=== PATIENT | female | born 1950 | race American Indian/Alaskan Native ===

== ENCOUNTER 2019-01-09 11:58 | Inpatient (IN) | payer MEDICARE ==
--- NOTE | 2019-01-09 12:11 | Emergency Department Report ---
Blank Doc - Documentation Documentation: This is a 68-year-old female that presents with chest pain that is tightness in nature with SOB and radiation to left arm. This initial assessment/diagnostic orders/clinical plan/treatment(s) is/are subject to change based on patient's health status, clinical progression and re- assessment by fellow clinical providers in the ED. Further treatment and workup at subsequent clinical providers discretion. Patient/guardians urged not to elope from the ED as their condition may be serious if not clinically assessed and managed. Initial orders include: 1- Patient sent to MAIN for further evaluation and treatment 2- labs 3- EKG 4- CXR
[2019-01-09 13:10] LABS: Basophils # (Auto) 0.1 K/mm3 (0.0-0.1); Basophils % (Auto) 0.9 % (0.0-1.8); Eosinophils # (Auto) 0.3 K/mm3 (0.0-0.4); Eosinophils % (Auto) 5.6 % (0.0-4.3); Hematocrit 40.6 % (30.3-42.9); Hemoglobin 13.5 gm/dl (10.1-14.3); Lymphocytes # (Auto) 1.4 K/mm3 (1.2-5.4); Lymphocytes % (Auto) 24.1 % (13.4-35.0); Mean Corpuscular HGB Conc 33 % (30-34); Mean Corpuscular Volume 92 fl (79-97); Monocytes # (Auto) 0.5 K/mm3 (0.0-0.8); Monocytes % (Auto) 9.2 % (0.0-7.3); Platelet Count 188 K/mm3 (140-440); Red Blood Count 4.41 M/mm3 (3.65-5.03); Red Cell Distribution Width 14.5 % (13.2-15.2)
[2019-01-09 13:21] LABS: INR 0.96 (0.87-1.13)
--- NOTE | 2019-01-09 13:21 | XRay Report ---
. CHEST 2 VIEWS INDICATION / CLINICAL INFORMATION: Chest Pain. COMPARISON: None available. FINDINGS: SUPPORT DEVICES: None. HEART / MEDIASTINUM: No significant abnormality. LUNGS / PLEURA: No significant pulmonary or pleural abnormality. .No pneumothorax. ADDITIONAL FINDINGS: No significant additional findings. IMPRESSION: 1. No acute findings. Signer Name: Terry Lazar MD Signed: 01/09/2019 1:16 PM Workstation Name: [id number]
[2019-01-09 13:22] LABS: Partial Thromboplastin Time 28.3 Sec. (24.2-36.6)
[2019-01-09 14:14] LABS: BUN/Creatinine Ratio TNR; Blood Urea Nitrogen TNR mg/dL (7-17); Calcium TNR mg/dL (8.4-10.2)
[2019-01-09 14:15] LABS: Hemolysis Index TNR
[2019-01-09 15:07] LABS: Calcium 9.1 mg/dL (8.4-10.2)
--- NOTE | 2019-01-09 17:13 | Emergency Department Report ---
ED Chest Pain HPI - General Chief Complaint: Chest Pain Stated Complaint: CHEST PAIN Time Seen by Provider: 01/09/19 12:10 Source: patient Mode of arrival: Ambulatory Limitations: No Limitations - History of Present Illness Initial Comments: 68-year-old female complains of pressure under her left breast intermittently today. The pain is not pleuritic and nonexertional. He states that she has previously had a stress test approximately 3 years ago which was negative. She has a history of hypertension but is not aware of cholesterol problem. Additio nal history includes hypothyroidism, arthritis and GERD. She is tearful but somewhat reticent to admit excessive stress. She states she's been living in this area for about a year and a half and is from [place]. She denies family history of venous thromboembolism or coronary artery disease. MD Complaint: chest pain -: Gradual, hour(s) Onset: during rest Pain Location: left chest Pain Radiation: none Quality: pressure Consistency: intermittent Improves With: nothing Worsens With: nothing re: nausea, vomting (times one), diaphoresis (states had some sweating). denies: dyspnea, sense of impending doom Other Symptoms: denies: cough, fever, syncope Treatments Prior to Arrival: none Aspirin use within the Past 7 Days: (0) No - Related Data On Oral Contraceptives: No Home Medications Medication Instructions Recorded Confirmed Last Taken Carvedilol [Coreg] 6.25 mg PO BID 01/09/19 01/09/19 01/09/19 Cholecalciferol (Vitamin D3) 50,000 unit PO QDAY 01/09/19 01/09/19 01/09/19 [Vitamin D3 50,000UNIT CAP] Duloxetine HCl [Cymbalta] 60 mg PO QDAY 01/09/19 01/09/19 01/09/19 Levothyroxine [Synthroid] 125 mcg PO QAM 01/09/19 01/09/19 01/09/19 Lisinopril/Hydrochlorothiazide 1 each PO QDAY 01/09/19 01/09/19 01/09/19 [Zestoretic 10-12.5 mg Tablet] Meloxicam [Mobic] 7.5 mg PO QDAY 01/09/19 01/09/19 01/09/19 Pantoprazole [Protonix] 40 mg PO QDAY 01/09/19 01/09/1919 cloNIDine [Catapres] 0.1 mg PO QDAY 01/09/19 01/09/19 01/09/19 raNITIdine HCl [Zantac] 150 mg PO QDAY 01/09/19 01/09/19 12/26/18 Allergies Allergy/AdvReac Type Severity Reaction Status Date / Time codeine Allergy Unknown Verified 01/09/19 12:01 Heart Score - HEART Score History: Moderately suspicious EKG: Normal Age: > 65 Risk factors: 1-2 risk factors Troponin: < normal limit HEART Score: 4 - Critical Actions Critical Actions: 4-6 pts:12-16.6% risk of adverse cardiac event. Should be admitted ED Review of Systems ROS: Stated complaint: CHEST PAIN Other details as noted in HPI Constitutional: denies: chills, fever Eyes: denies: eye pain, eye discharge, vision change ENT: denies: ear pain, throat pain Respiratory: denies: cough, shortness of breath, wheezing Cardiovascular: denies: chest pain, palpitations Endocrine: no symptoms reported Gastrointestinal: denies: abdominal pain, nausea, diarrhea Genitourinary: denies: urgency, dysuria, discharge Musculoskeletal: denies: back pain, joint swelling, arthralgia Skin: denies: rash, lesions Neurological: headache, numbness (right leg intermittently for months). denies: weakness, paresthesias Psychiatric: denies: anxiety, depression Hematological/Lymphatic: denies: easy bleeding, easy bruising ED Past Medical Hx - Past Medical History Previous Medical History?: Yes Hx Hypertension: Yes Hx GERD: Yes Hx Arthritis: Yes Additional medical history: hypothyroid - Social History Smoking Status: Former Smoker Substance Use Type: None - Medications Home Medications: Home Medications Medication Instructions Recorded Confirmed Last Taken Type Carvedilol [Coreg] 6.25 mg PO BID 01/09/19 01/09/19 01/09/19 History Cholecalciferol (Vitamin D3) 50,000 unit PO QDAY 01/09/19 01/09/19 01/09/19 History [Vitamin D3 50,000UNIT CAP] Duloxetine HCl [Cymbalta] 60 mg PO QDAY 01/09/19 01/09/19 01/09/19 History Levothyroxine [Synthroid] 125 mcg PO QAM 01/09/19 01/09/1919 History Lisinopril/Hydrochlorothiazide 1 each PO QDAY 01/09/19 01/09/19 01/09/19 History [Zestoretic 10-12.5 mg Tablet] Meloxicam [Mobic] 7.5 mg PO QDAY 01/09/19 01/09/19 01/09/19 History Pantoprazole [Protonix] 40 mg PO QDAY 01/09/19 01/09/19 01/09/19 History cloNIDine [Catapres] 0.1 mg PO QDAY 01/09/19 01/09/19 01/09/19 History raNITIdine HCl [Zantac] 150 mg PO QDAY 01/09/19 01/09/19 12/26/18 History ED Physical Exam - General Limitations: No Limitations General appearance: alert, in no apparent distress - Head Head exam: Present: atraumatic, normocephalic - Eye Eye exam: Present: normal appearance. Absent: scleral icterus - ENT ENT exam: Present: mucous membranes moist - Neck Neck exam: Present: normal inspection. Absent: tenderness, meningismus - Respiratory Respiratory exam: Present: normal lung sounds bilaterally. Absent: respiratory distress - Cardiovascular Cardiovascular Exam: Present: regular rate, normal rhythm. Absent: systolic murmur, diastolic murmur, rubs, gallop - GI/Abdominal GI/Abdominal exam: Present: soft, normal bowel sounds. Absent: distended, te nderness, guarding, rebound, rigid - Extremities Exam Extremities exam: Present: normal inspection, normal capillary refill. Absent: tenderness, pedal edema, joint swelling, calf tenderness - Back Exam Back exam: Present: normal inspection - Neurological Exam Neurological exam: Present: alert, oriented X3, CN II-XII intact. Absent: motor sensory deficit - Psychiatric Psychiatric exam: Present: normal mood. Absent: normal affect (a bit labile) - Skin Skin exam: Present: warm, dry, intact, normal color. Absent: rash ED Course Vital Signs 01/09/19 12:11 Temperature 98.4 F Pulse Rate 74 Respiratory 18 Rate Blood Pressure 130/81 O2 Sat by Pulse 100 Oximetry - Reevaluation(s) Reevaluation #1: Patient is given analgesia. She sent for CT of her head due to her complaint of headache as well as intermittent right leg numbness. Her NIH stroke score was 0. Her neurological exam was normal; I found no sensory deficits. 01/09/19 18:32 ED Medical Decision Making - Lab Data Result diagrams: 01/09/19 12:37 01/09/19 14:33 Laboratory Results - last 24 hr 01/09/19 01/09/19 01/09/19 12:37 12:37 12:37 WBC 5.9 RBC 4.41 Hgb 13.5 Hct 40.6 MCV 92 MCH 31 MCHC 33 RDW 14.5 Plt Count 188 Lymph % (Auto) 24.1 [place] % (Auto) 9.2 H Eos % (Auto) 5.6 H Baso % (Auto) 0.9 Lymph # 1.4 [place] # 0.5 Eos # 0.3 Baso # 0.1 Seg Neutrophils % 60.2 Seg Neutrophils # 3.6 PT 12.5 INR 0.96 APTT 28.3 Sodium TNR Potassium TNR Chloride TNR Carbon Dioxide TNR Anion Gap TNR BUN TNR Creatinine TNR Estimated GFR TNR BUN/Creatinine Ratio TNR Glucose TNR Calcium TNR Troponin T < 0.010 01/09/19 01/09/19 14:33 14:33 WBC RBC Hgb Hct MCV MCH MCHC RDW Plt Count Lymph % (Auto) [place] % (Auto) Eos % (Auto) Baso % (Auto) Lymph # [place] # Eos # Baso # Seg Neutrophils % Seg Neutrophils # PT INR APTT Sodium 142 Potassium 4.5 Chloride 103.0 Carbon Dioxide 29 Anion Gap 15 BUN 25 H Creatinine 1.0 Estimated GFR 55 BUN/Creatinine Ratio 25 Glucose 88 Calcium 9.1 Troponin T < 0.010 - EKG Data -: EKG Interpreted by Me EKG shows normal: sinus rhythm, axis, intervals, QRS complexes (low-voltage), ST-T waves - EKG Data Interpretation: no acute changes - Radiology Data Radiology results: pending, report reviewed (no acute process), image reviewed (CT head I don't see any acute process or remarkable intracranial abdomen mildly interpretation pending per radiologist) Critical care attestation.: If time is entered above; I have spent that time in minutes in the direct care of this critically ill patient, excluding procedure time. ED Disposition Clinical Impression: Chest pain Qualifiers: Chest pain type: unspecified Qualified Code(s): R07.9 - Chest pain, unspecified Disposition: DC-09 OP ADMIT IP TO THIS HOSP Is pt being admited?: Yes Does the pt Need Aspirin: Yes Condition: Stable Instructions: Chest Pain (ED) Referrals: PRIMARY CARE, [Referring] - 3-5 Days Time of Disposition: 18:39
[2019-01-09] MEDS ORDERED: ZOFRAN IV ONE (17:55)
[2019-01-09] MEDS ORDERED: ASPIRIN PO ONE (17:55)
[2019-01-09] MEDS ORDERED: MORPHINE IV ONE (17:55)
--- NOTE | 2019-01-09 18:46 | Cat Scan Report ---
CT BRAIN: 01/09/2019 INDICATION / CLINICAL INFORMATION: headache. COMPARISON: None available. FINDINGS: BRAIN/INTRACRANIAL STRUCTURES: Unenhanced CT images of the brain demonstrate no evidence of acute int racranial abnormality. Ventricles and sulci are slightly prominent in size, consistent with normal age-related atrophic edwards ge. There is no evidence of hemorrhage or mass. There are no abnormal extra-axial fluid collections. EXTRACRANIAL STRUCTURES: Unremarkable. IMPRESSION: No acute abnormality. All CT scans at this location are performed using dose reduction to ALARA by means of automated expos ure control. Signer Name: Tyler Piedra MD Signed: 01/09/2019 6:42 PM Workstation Name: [id number]
[2019-01-09] MEDS ORDERED: NITROSTAT SL PRN (19:48)
[2019-01-09] MEDS ORDERED: SODIUM CHLORIDE FLUSH SYRINGE 10 ML IV PRN (19:48)
[2019-01-09] MEDS ORDERED: PROVENTIL IH PRN (19:53)
[2019-01-09] MEDS ORDERED: ZOFRAN IV PRN (19:53)
[2019-01-09] MEDS ORDERED: NACL 0.9% 1000 ML 1,000 ML IV SCH (20:00)
[2019-01-09] MEDS ORDERED: NACL 0.9% 1000 ML 2,000 ML ONE (20:08)
--- NOTE | 2019-01-09 20:19 | History and Physical Report ---
History of Present Illness Date of examination: 01/09/19 Date of admission: 01/09/2019 Chief complaint: Chest Pain History of present illness: 68-year-old -[place] female who is a former smoker with history of degenerative disc disease, hypertension, hypothyroidism, GERD, arthritis who presents to [facility] ED with complaints of chest pain. Pt is a nursery school attendant by profession. Pt states that she was in the middle of her morning lesson, when she began experiencing nausea, diaphoresis and intermittent substernal left-sided chest pain. She stepped out side the classroom to get some fresh air. She thought her pain was associated with gas and took GasX with no relief; instead her pain returned. This time with radiation to left arm. She describes her pain as tightness/pressure and rates it 9/10. Pt states that she's had CP approx 3 years ago and vaguely recalls having a stress test, which was negative, and was started on Coreg. Additionally pt c/o og generalized headache, which has since resolved. Past History Past Medical History: arthritis, GERD, hypertension, hypothyroidism, other (degenerative of this disease) Past Surgical History: thyroidectomy, Other (Back surgery) Social history: lives with family, other (Fomrer Smoker ) Family history: no significant family history Medications and Allergies Allergies Allergy/AdvReac Type Severity Reaction Status Date / Time codeine Allergy Unknown Verified 01/09/19 12:01 Home Medications Medication Instructions Recorded Confirmed Last Taken Type Carvedilol [Coreg] 6.25 mg PO BID 01/09/19 01/09/19 01/09/19 History Cholecalciferol (Vitamin D3) 50,000 unit PO QDAY 01/09/19 01/09/19 01/09/19 His tory [Vitamin D3 50,000UNIT CAP] Duloxetine HCl [Cymbalta] 60 mg PO QDAY 01/09/19 01/09/19 01/09/19 History Levothyroxine [Synthroid] 125 mcg PO QAM 01/09/19 01/09/19 01/09/19 History Lisinopril/Hydrochlorothiazide 1 each PO QDAY 01/09/19 01/09/19 01/09/19 History [Zestoretic 10-12.5 mg Tablet] Meloxicam [Mobic] 7.5 mg PO QDAY 01/09/19 01/09/1919 History Pantoprazole [Protonix] 40 mg PO QDAY 01/09/19 01/09/19 01/09/19 History cloNIDine [Catapres] 0.1 mg PO QDAY 01/09/19 01/09/19 01/09/19 History raNITIdine HCl [Zantac] 150 mg PO QDAY 01/09/19 01/09/19 12/26/18 History Active Meds: Active Medications Albuterol (Proventil) 2.5 mg IH Q3HRT PRN PRN Reason: Shortness Of Breath Aspirin (Baby Aspirin) 81 mg PO QDAY [facility] Atorvastatin Calcium (Lipitor) 40 mg PO QHS [facility] Clonidine HCl (Catapres) 0.1 mg PO QDAY [facility] Duloxetine HCl (Cymbalta) 60 mg PO QDAY [facility] Enoxaparin Sodium (Lovenox) 40 mg SUB-Q QDAY [facility] Hydrochlorothiazide (Hctz) 12.5 mg PO QDAY [facility] Sodium Chloride (Nacl 0.9% 1000 Ml) 1,000 mls @ 100 mls/hr IV DIRECT [facility] Last Admin: 01/09/19 20:11 Dose: 100 mls/hr Documented by: Levothyroxine Sodium (Synthroid) 125 mcg PO QAM [facility] Lisinopril (Zestril) 10 mg PO QDAY [facility] Meloxicam (Mobic) 7.5 mg PO QDAY [facility] Miscellaneous Medication (Cholecalciferol (Vitamin D3) [Vitamin D3 50,000unit Cap]) 50,000 unit PO QDAY [facility] Morphine Sulfate (Morphine) 2 mg IV Q4H PRN PRN Reason: Pain, Moderate (4-6) Nitroglycerin (Nitrostat) 0.4 mg SL Q5M PRN PRN Reason: Chest Pain Ondansetron HCl (Zofran) 4 mg IV Q6H PRN PRN Reason: Nausea And Vomiting Oxycodone/Acetaminophen (Percocet 5/325) 1 tab PO Q6H PRN PRN Reason: Pain, Moderate (4-6) Pantoprazole Sodium (Protonix) 40 mg PO QDAY [facility] Sodium Chloride (Sodium Chloride Flush Syringe 10 Ml) 10 ml IV PRN PRN PRN Reason: LINE FLUSH Sodium Chloride (Sodium Chloride Flush Syringe 10 Ml) 10 ml IV BID [facility] Review of Systems All systems: negative (reviewed and no remarkable complaints except as noted below) Cardiovascular: chest pain, lightheadedness, other (diaphoresis) Gastrointestinal: nausea Neurological: headaches (Gunjan complained of headache but has since resolved) Exam - Physical Exam Narrative exam: Physical exam General appearance: Present: No acute distress, pleasant, alert and oriented 3, older adult -[place] female - EENT Eyes: Present: PERRL, EOM intact ENT: hearing intact, normal dentition - Neck Neck: Present: supple, normal ROM - Respiratory Respiratory effort: Non-labored Respiratory: CTA bilaterally - Cardiovascular Heart rate: 65 (bpm) Rhythm: Sinus rhythm Heart Sounds: Present: S1 & S2. Absent: rub, click - Extremities Extremities: no ischemia, pulses intact, - Peripheral Assessment Peripheral Pulses: within normal limits - Abdominal General gastrointestinal: These, soft, non-tender, normal bowel sounds - Integumentary Integumentary: Present: warm, dry - Musculoskeletal Musculoskeletal: Able to move all extremities -Neurological Neurological: CN II-XII grossly intact - Psychiatric Psychiatric: cooperative - Constitutional Vitals: Temp Pulse Resp BP Pulse Ox 98 F 64 12 151/88 99 01/09/19 19:10 01/09/19 19:10 01/09/19 19:10 01/09/19 19:10 01/09/19 19:10 Results - Labs CBC & Chem 7: 01/09/19 12:37 01/09/19 14:33 Labs: Laboratory Last Values WBC 5.9 K/mm3 (4.5-11.0) 01/09/19 12:37 RBC 4.41 M/mm3 (3.65-5.03) 01/09/19 12:37 Hgb 13.5 gm/dl (10.1-14.3) 01/09/19 12:37 Hct 40.6 % (30.3-42.9) 01/09/19 12:37 MCV 92 fl (79-97) 01/09/19 12:37 MCH 31 pg (28-32) 01/09/19 12:37 MCHC 33 % (30-34) 01/09/19 12:37 RDW 14.5 % (13.2-15.2) 01/09/19 12:37 Plt Count 188 K/mm3 (140-440) 01/09/19 12:37 Lymph % (Auto) 24.1 % (13.4-35.0) 01/09/19 12:37 [place] % (Auto) 9.2 % (0.0-7.3) H 01/09/19 12:37 Eos % (Auto) 5.6 % (0.0-4.3) H 01/09/19 12:37 Baso % (Auto) 0.9 % (0.0-1.8) 01/09/19 12:37 Lymph # 1.4 K/mm3 (1.2-5.4) 01/09/19 12:37 [place] # 0.5 K/mm3 (0.0-0.8) 01/09/19 12:37 Eos # 0.3 K/mm3 (0.0-0.4) 01/09/19 12:37 Baso # 0.1 K/mm3 (0.0-0.1) 01/09/19 12:37 Seg Neutrophils % 60.2 % (40.0-70.0) 01/09/19 12:37 Seg Neutrophils # 3.6 K/mm3 (1.8-7.7) 01/09/19 12:37 PT 12.5 Sec. (12.2-14.9) 01/09/19 12:37 INR 0.96 (0.87-1.13) 01/09/19 12:37 APTT 28.3 Sec. (24.2-36.6) 01/09/19 12:37 Sodium 142 mmol/L (137-145) 01/09/19 14:33 Potassium 4.5 mmol/L (3.6-5.0) 01/09/19 14:33 Chloride 103.0 mmol/L (98-107) 01/09/19 14:33 Carbon Dioxide 29 mmol/L (22-30) 01/09/19 14:33 15 mmol/L 01/09/19 14:33 BUN 25 mg/dL (7-17) H 01/09/19 14:33 1.0 mg/dL (0.7-1.2) 01/09/19 14:33 Estimated GFR 55 ml/min 01/09/19 14:33 25 % 01/09/19 14:33 Glucose 88 mg/dL (65-100) 01/09/19 14:33 Calcium 9.1 mg/dL (8.4-10.2) 01/09/19 14:33 < 0.010 ng/mL (0.00-0.029) 01/09/19 14:33 - Imaging and Cardiology EKG: image reviewed (Sinus rhythm, 65 bpm) Chest x-ray: report reviewed (LUNGS / PLEURA: No significant pulmonary or pleural abnormality. .No pneumothorax. ), image reviewed Imaging and Cardiology: CT Head: FINDINGS: BRAIN/INTRACRANIAL STRUCTURES: Unenhanced CT images of the brain demonstrate no evidence of acute intracranial abnormality. Ventricles and sulci are slightly prominent in size, consistent with normal age-related atrophic change. There is no evidence of hemorrhage or mass. There are no abnormal extra- axial fluid collections. EXTRACRANIAL STRUCTURES: Unremarkable. IMPRESSION: No acute abnormality. Assessment and Plan Assessment and plan: 68-year-old -[place] female who is a former smoker with history of degenerative disc disease, hypertension, hypothyroidism, GERD, arthritis who presents to [facility] ED with complaints of chest pain accompanied by diaphoresis and nausea. Acute Chest Pain R/O ACS -Initiate chest pain protocol -Continuous telemetry monitoring -Continue supportive care -Pain mgmt -Echo and Lexiscan pending -Troponin neg x2, repeat troponin -Start ASA and Statin -Lipid panel pending HTN -Monitor BP -Resume home antihypertensive meds to optimize BP -Hold BB for now -IV hydralazine when necessary Hypothroidism -Continue Synthroid -Check TSH GERD -Continue PPI Arthritis -Supportive care DVT PPX -On Lovenox Advance Directives: No VTE prophylaxis?: Chemical Plan of care discussed with patient/family: Yes
[2019-01-09] MEDS ORDERED: APRESOLINE IV PRN (20:26)
[2019-01-09] MEDS: PERCOCET 5/325 PO PRN (22:23)
[2019-01-09] MEDS: SODIUM CHLORIDE FLUSH SYRINGE 10 ML IV SCH (22:24)
[2019-01-09] MEDS: AMBIEN PO PRN (23:25)
[2019-01-10] MEDS: MORPHINE IV PRN ×2 (00:27→20:36)
[2019-01-10 05:00] LABS: Basophils % (Auto) 0.4 % (0.0-1.8); Eosinophils # (Auto) 0.3 K/mm3 (0.0-0.4); Eosinophils % (Auto) 6.5 % (0.0-4.3); Hemoglobin 13.3 gm/dl (10.1-14.3); Lymphocytes # (Auto) 1.5 K/mm3 (1.2-5.4); Lymphocytes % (Auto) 29.3 % (13.4-35.0); Mean Corpuscular HGB Conc 33 % (30-34); Mean Corpuscular Volume 93 fl (79-97); Monocytes # (Auto) 0.6 K/mm3 (0.0-0.8); Monocytes % (Auto) 11.1 % (0.0-7.3); Platelet Count 177 K/mm3 (140-440); Red Cell Distribution Width 14.7 % (13.2-15.2)
[2019-01-10 05:47] LABS: BUN/Creatinine Ratio 26; Blood Urea Nitrogen 23 mg/dL (7-17); Calcium 8.7 mg/dL (8.4-10.2); Chol/HDL Ratio 2.84 %; HDL Cholesterol 58 mg/dL (40-59); Hemolysis Index 18; LDL Cholesterol,Direct 91 mg/dL (50-130)
[2019-01-10] MEDS ORDERED: LEXISCAN IV ONE ×2 (09:56→09:57)
[2019-01-10] MEDS ORDERED: NON-FORMULARY (Duloxetine Hcl [Cymbalta] 60 MG) PO SCH (10:00)
[2019-01-10] MEDS ORDERED: NON-FORMULARY (Lisinopril/Hydrochlorothiazide [Zestoretic 10-12.5 Mg Tablet] 1 EACH) PO SCH (10:00)
[2019-01-10] MEDS ORDERED: CHOLECALCIFEROL 50000 UNIT PO SCH (10:00)
[2019-01-10] MEDS ORDERED: CATAPRES PO SCH (10:00)
[2019-01-10] MEDS ORDERED: ZESTRIL PO SCH (10:00)
[2019-01-10] MEDS: SODIUM CHLORIDE FLUSH SYRINGE 10 ML IV SCH ×2 (10:38→22:48)
--- NOTE | 2019-01-10 13:18 | Event Note ---
Date: 01/10/19 lexiscan stress: lvef 68%. a small area of mild basal septal ischemia cannot be excluded. this defect was seen in only one imaging projection and may be artifactual in origin. a significant degree of ischemia was not seen. correlate clinically.
[2019-01-10] MEDS: BABY ASPIRIN PO SCH (14:00)
[2019-01-10] MEDS: CYMBALTA PO SCH (14:00)
[2019-01-10] MEDS: PERCOCET 5/325 PO PRN (14:01)
[2019-01-10] MEDS: SYNTHROID PO SCH (14:02)
[2019-01-10] MEDS: PROTONIX PO SCH (14:02)
[2019-01-10] MEDS: LOVENOX SUB-Q SCH (14:02)
[2019-01-10] MEDS: MOBIC PO SCH (14:03)
--- NOTE | 2019-01-10 14:56 | Consultation ---
History of Present Illness Consult date: 01/10/19 Consult reason: chest pain History of present illness: 68 yo female adm to [facility] c/o chest pain concerning for myocardial ischemia. ecg and cardiac enz unremarkable as was an echocardiogram. lexiscan stress mpi demonstrated normal lv systolic function with an area of possible basal inferoseptal ischemia. cardiology consultation was requested. the pt described the cp as pressure in qual with radiation down the left arm and accompanied by diaphoresis. 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) Past Surgical History: thyroidectomy, Other (Back surgery) Social history: lives with family, other (Fomrer Smoker ) Family history: no significant family history Medications and Allergies Allergies Allergy/AdvReac Type Severity Reaction Status Date / Time codeine Allergy Unknown Verified 01/09/19 12:01 Home Medications Medication Instructions Recorded Confirmed Last Taken Type Carvedilol [Coreg] 6.25 mg PO BID 01/09/19 01/09/19 01/09/19 History Cholecalciferol (Vitamin D3) 50,000 unit PO QWEEK 01/09/19 01/09/19 01/09/19 History [Vitamin D3 50,000UNIT CAP] Duloxetine HCl [Cymbalta] 60 mg PO QDAY 01/09/19 01/09/19 01/09/19 History HYDROcodone/APAP 7.5-325 [[place] 1 tab PO BID 01/09/19 01/09/19 01/08/19 History 7.5-325 mg TAB] Levothyroxine [Synthroid] 125 mcg PO QAM 01/09/19 01/09/19 01/09/19 History Lisinopril/Hydrochlorothiazide 1 each PO QDAY 01/09/19 01/09/19 01/09/19 History [Zestoretic 10-12.5 mg Tablet] Meloxicam [Mobic] 7.5 mg PO QDAY 01/09/19 01/09/19 01/09/19 History Pantoprazole [Protonix] 40 mg PO QDAY 01/09/19 01/09/19 01/09/19 History Zolpidem [Ambien] 10 mg PO QHS 01/09/19 01/09/19 01/08/19 History cloNIDine [Catapres] 0.1 mg PO QDAY 01/09/19 01/09/19 01/09/19 History raNITIdine HCl [Zantac] 150 mg PO QDAY 01/09/19 01/09/19 12/26/18 History Active Meds: Active Medications Albuterol (Proventil) 2.5 mg IH Q3HRT PRN PRN Reason: Shortness Of Breath Aspirin (Baby Aspirin) 81 mg PO QDAY [facility] Last Admin: 01/10/19 14:00 Dose: 81 mg Documented by: Atorvastatin Calcium (Lipitor) 40 mg PO QHS [facility] Last Admin: 01/09/19 22:23 Dose: 40 mg Documented by: Duloxetine HCl (Cymbalta) 60 mg PO QDAY [facility] Last Admin: 01/10/19 14:00 Dose: 60 mg Documented by: Enoxaparin Sodium (Lovenox) 40 mg SUB-Q QDAY [facility] Last Admin: 01/10/19 14:02 Dose: 40 mg Documented by: Hydralazine HCl (Apresoline) 10 mg IV Q4HR PRN PRN Reason: Blood Pressure Hydrochlorothiazide (Hctz) 12.5 mg PO QDAY [facility] Sodium Chloride (Nacl 0.9% 1000 Ml) 1,000 mls @ 100 mls/hr IV DIRECT [facility] Last Admin: 01/09/19 20:11 Dose: 100 mls/hr Documented by: Levothyroxine Sodium (Synthroid) 125 mcg PO QAM [facility] Last Admin: 01/10/19 14:02 Dose: 125 mcg Documented by: Meloxicam (Mobic) 7.5 mg PO QDAY [facility] Last Admin: 01/10/19 14:03 Dose: 7.5 mg Documented by: Morphine Sulfate (Morphine) 2 mg IV Q4H PRN PRN Reason: Pain, Moderate (4-6) Last Admin: 01/10/19 00:27 Dose: 2 mg Documented by: Nitroglycerin (Nitrostat) 0.4 mg SL Q5M PRN PRN Reason: Chest Pain Nitroglycerin (Nitro-Bid 2%) 0.5 inch TP Q6H [facility]; Protocol Ondansetron HCl (Zofran) 4 mg IV Q6H PRN PRN Reason: Nausea And Vomiting Oxycodone/Acetaminophen (Percocet 5/325) 1 tab PO Q6H PRN PRN Reason: Pain, Moderate (4-6) Last Admin: 01/10/19 14:01 Dose: 1 tab Documented by: Pantoprazole Sodium (Protonix) 40 mg PO QDAY [facility] Last Admin: 01/10/19 14:02 Dose: 40 mg Documented by: Sodium Chloride (Sodium Chloride Flush Syringe 10 Ml) 10 ml IV PRN PRN PRN Reason: LINE FLUSH Sodium Chloride (Sodium Chloride Flush Syringe 10 Ml) 10 ml IV BID [facility] Last Admin: 01/09/19 22:24 Dose: 10 ml Documented by: Zolpidem Tartrate (Ambien) 5 mg PO QHS PRN PRN Reason: Sleep Last Admin: 01/09/19 23:25 Dose: 5 mg Documented by: Review of Systems Constitutional: no fever, no chills Eyes: bilateral: blurred vision (w/o) Ears, nose, mouth and throat: no epistaxis Cardiovascular: no orthopnea Respiratory: no hemoptysis Gastrointestinal: no abdominal pain Genitourinary Female: no flank pain Musculoskeletal: no frequent falls Integumentary: no rash Neurological: no seizures, no syncope Psychiatric: no anxiety Endocrine: no cold intolerance, no heat intolerance Hematologic/Lymphatic: no easy bruising Allergic/Immunologic: no urticaria Physical Examination Vital Signs Temp Pulse Resp BP Pulse Ox 98.4 F 74 18 130/81 100 01/09/19 12:11 01/09/19 12:11 01/09/19 12:11 01/09/19 12:11 01/09/19 12:11 General appearance: no acute distress HEENT: Positive: PERRL Neck: Positive: neck supple. Negative: JVD/HJR, Bruit Cardiac: Positive: Reg Rate and Rhythm. Negative: Audible Murmur Lungs: Positive: clear to auscultation Neuro: Positive: Grossly Intact Abdomen: Positive: Soft. Negative: Tender Skin: Positive: Clear Extremities: Present: normal. Absent: edema Results 01/10/19 04:02 01/10/19 04:02 Lipids 01/10/19 Range/Units 04:02 Triglycerides 104 (2-149) mg/dL Cholesterol 165 (50-199) mg/dL HDL Cholesterol 58 (40-59) mg/dL Cholesterol/HDL Ratio 2.84 % CBC 01/10/19 Range/Units 04:02 WBC 5.2 (4.5-11.0) K/mm3 RBC 4.30 (3.65-5.03) M/mm3 Hgb 13.3 (10.1-14.3) gm/dl Hct 40.0 (30.3-42.9) % Plt Count 177 (140-440) K/mm3 Lymph # 1.5 (1.2-5.4) K/mm3 [place] # 0.6 (0.0-0.8) K/mm3 Eos # 0.3 (0.0-0.4) K/mm3 Baso # 0.0 (0.0-0.1) K/mm3 Comprehensive Metabolic Panel 01/09/19 01/10/19 Range/Units 14:33 04:02 Sodium 142 145 (137-145) mmol/L Potassium 4.5 4.1 (3.6-5.0) mmol/L Chloride 103.0 106.6 (98-107) mmol/L Carbon Dioxide 29 30 (22-30) mmol/L BUN 25 H 23 H (7-17) mg/dL Creatinine 1.0 0.9 (0.7-1.2) mg/dL Glucose 88 100 (65-100) mg/dL Calcium 9.1 8.7 (8.4-10.2) mg/dL Assessment and Plan chest pain concerning for myocardial ischemia tanya stress mpi not diagnostic but cannot exclude an area of basal septal ischemia suggestive of potential occlusive disease in the distribution of the right coronary artery. I had a lengthy discussion with patient re the findings. she would like to proceed with invasvie cor angio for definitive diagnosis. please keep her in the hosp and we will plan to perform the procedure on sunday.
[2019-01-10] MEDS: HCTZ PO SCH (15:19)
[2019-01-10] MEDS: NITRO-BID 2% TP SCH ×2 (15:19→20:35)
[2019-01-10] MEDS ORDERED: NACL 0.9% 500 ML 500 ML IV SCH (16:00)
--- NOTE | 2019-01-10 18:39 | Progress Note ---
Assessment and Plan Assessment and plan: 68-year-old -[place] female who is a former smoker with history of degenerative disc disease, hypertension, hypothyroidism, GERD, arthritis who presents to [facility] ED with complaints of chest pain accompanied by diaphoresis and nausea. Acute Chest Pain To R/O ACS -Initiate chest pain protocol -Continuous telemetry monitoring -Continue supportive care -Pain mgmt -Slight abnormal stress test Consult cardiology Start Nitropaste For stress test on Sunday Will change from Obs to Full admit HTN -Monitor BP -Resume home antihypertensive meds to optimize BP -Hold BB for now -IV hydralazine when necessary Hypothroidism -Continue Synthroid GERD -Continue PPI Arthritis -Supportive care DVT PPX -On Lovenox History Interval history: Presented with chest pain Less chest pain but still present Hospitalist Physical - Physical exam Narrative exam: Gen: Not in acute distress, lying in bed,morbidly obese HEENT: Normocephalic, atraumatic Neck: supple, no JVD Heart: S1 and S2 reg, no murmurs, rubs or gallop Lungs: Clear, no crackles, no rhonchi Abd: soft, non tender, non distended, normal BS, Ext: No edema, no clubbing, no cyanosis Neuro: awake,alert,oriented, moves all ext - Constitutional Vitals: Temp Pulse Resp BP Pulse Ox 97.8 F 62 12 115/50 97 01/10/19 07:31 01/10/19 14:00 01/10/19 07:31 01/10/19 14:00 01/10/19 07:31 General appearance: Present: no acute distress Results - Labs CBC & Chem 7: 01/10/19 04:02 01/10/19 04:02 Labs: Laboratory Last Values WBC 5.2 K/mm3 (4.5-11.0) 01/10/19 04:02 RBC 4.30 M/mm3 (3.65-5.03) 01/10/19 04:02 Hgb 13.3 gm/dl (10.1-14.3) 01/10/19 04:02 Hct 40.0 % (30.3-42.9) 01/10/19 04:02 MCV 93 fl (79-97) 01/10/19 04:02 MCH 31 pg (28-32) 01/10/19 04:02 MCHC 33 % (30-34) 01/10/19 04:02 RDW 14.7 % (13.2-15.2) 01/10/19 04:02 Plt Count 177 K/mm3 (140-440) 01/10/19 04:02 Lymph % (Auto) 29.3 % (13.4-35.0) 01/10/19 04:02 [place] % (Auto) 11.1 % (0.0-7.3) H 01/10/19 04:02 Eos % (Auto) 6.5 % (0.0-4.3) H 01/10/19 04:02 Baso % (Auto) 0.4 % (0.0-1.8) 01/10/19 04:02 Lymph # 1.5 K/mm3 (1.2-5.4) 01/10/19 04:02 [place] # 0.6 K/mm3 (0.0-0.8) 01/10/19 04:02 Eos # 0.3 K/mm3 (0.0-0.4) 01/10/19 04:02 Baso # 0.0 K/mm3 (0.0-0.1) 01/10/19 04:02 Seg Neutrophils % 52.7 % (40.0-70.0) 01/10/19 04:02 Seg Neutrophils # 2.8 K/mm3 (1.8-7.7) 01/10/19 04:02 PT 12.5 Sec. (12.2-14.9) 01/09/19 12:37 INR 0.96 (0.87-1.13) 01/09/19 12:37 APTT 28.3 Sec. (24.2-36.6) 01/09/19 12:37 Sodium 145 mmol/L (137-145) 01/10/19 04:02 Potassium 4.1 mmol/L (3.6-5.0) 01/10/19 04:02 Chloride 106.6 mmol/L (98-107) 01/10/19 04:02 Carbon Dioxide 30 mmol/L (22-30) 01/10/19 04:02 13 mmol/L 01/10/19 04:02 BUN 23 mg/dL (7-17) H 01/10/19 04:02 0.9 mg/dL (0.7-1.2) 01/10/19 04:02 Estimated GFR > 60 ml/min 01/10/19 04:02 26 % 01/10/19 04:02 Glucose 100 mg/dL (65-100) 01/10/19 04:02 Calcium 8.7 mg/dL (8.4-10.2) 01/10/19 04:02 < 0.010 ng/mL (0.00-0.029) 01/09/19 21:24 Triglycerides 104 mg/dL (2-149) 01/10/19 04:02 Cholesterol 165 mg/dL (50-199) 01/10/19 04:02 91 mg/dL (50-130) 01/10/19 04:02 58 mg/dL (40-59) 01/10/19 04:02 2.84 % 01/10/19 04:02 TSH 3.060 mlU/mL (0.270-4.200) 01/09/19 21:24 Active Medications - Current Medications Current Medications: Generic Name Dose Route Start Last Admin Trade Name Freq PRN Reason Stop Dose Admin Albuterol 2.5 mg 01/09/19 19:53 Proventil IH Q3HRT PRN Shortness Of Breath Aspirin 81 mg 01/10/19 10:00 01/10/19 14:00 Baby Aspirin PO 81 mg QDAY [facility] Administration Atorvastatin Calcium 40 mg 01/09/19 22:00 01/09/19 22:23 Lipitor PO 40 mg QHS [facility] Administration Duloxetine HCl 60 mg 01/10/19 10:00 01/10/19 14:00 Cymbalta PO 60 mg QDAY [facility] Administration Enoxaparin Sodium 40 mg 01/10/19 10:00 01/10/19 14:02 Lovenox SUB-Q 40 mg QDAY [facility] Administration Hydralazine HCl 10 mg 01/09/19 20:26 Apresoline IV Q4HR PRN Blood Pressure Hydrochlorothiazide 12.5 mg 01/10/19 10:00 Hctz PO QDAY [facility] Sodium Chloride 1,000 mls @ 100 mls/hr 01/09/19 20:00 01/09/19 20:11 Nacl 0.9% 1000 Ml IV 100 mls/hr DIRECT [facility] Administration Sodium Chloride 500 mls @ 50 mls/hr 01/10/19 16:00 Nacl 0.9% 500 Ml IV 01/11/19 01:59 DIRECT [facility]A Levothyroxine Sodium 125 mcg 01/10/19 10:00 01/10/19 14:02 Synthroid PO 125 mcg QAM [facility] Administration Meloxicam 7.5 mg 01/10/19 10:00 01/10/19 14:03 Mobic PO 7.5 mg QDAY [facility] Administration Morphine Sulfate 2 mg 01/09/19 19:53 01/10/19 00:27 Morphine IV 2 mg Q4H PRN Administration Pain, Moderate (4-6) Nitroglycerin 0.4 mg 01/09/19 19:48 Nitrostat SL Q5M PRN Chest Pain Nitroglycerin 0.5 inch 01/10/19 15:00 Nitro-Bid 2% TP Q6H [facility] Protocol Ondansetron HCl 4 mg 01/09/19 19:53 Zofran IV Q6H PRN Nausea And Vomiting Oxycodone/Acetaminophen 1 tab 01/09/19 19:53 01/10/19 14:01 Percocet 5/325 PO 1 tab Q6H PRN Administration Pain, Moderate (4-6) Pantoprazole Sodium 40 mg 01/10/19 10:00 01/10/19 14:02 Protonix PO 40 mg QDAY [facility] Administration Sodium Chloride 10 ml 01/09/19 19:48 Sodium Chloride Flush Syringe 10 Ml IV PRN PRN LINE FLUSH Sodium Chloride 10 ml 01/09/19 22:00 01/09/19 22:24 Sodium Chloride Flush Syringe 10 Ml IV 10 ml BID [facility] Administration Zolpidem Tartrate 5 mg 01/09/19 22:55 01/09/19 23:25 Ambien PO 5 mg QHS PRN Administration Sleep
[2019-01-10] MEDS: AMBIEN PO PRN (21:44)
--- NOTE | 2019-01-10 22:49 | Treadmill Report ---
NUCLEAR CARDIAC IMAGING REPORT INDICATION FOR PROCEDURE: Chest pain. Informed consent was obtained. Vasodilator stress was achieved with the intravenous administration of 0.4 mg of Lexiscan per protocol. Rest and stress nuclear cardiac imaging was performed following the intravenous administration of technetium-99m Myoview per protocol. Gated SPECT imaging demonstrates a post-stress left ventricular ejection fraction of 68% with normal wall motion. Myocardial perfusion imaging demonstrates no significant cavity change between stress and rest. There is a small mild reversible basal septal perfusion abnormality. This defect; however, is seen in only one imaging projection and may be artifactual in origin. Nuclear cardiac imaging demonstrates grossly normal post-stress left ventricular systolic function. There is no significant evidence for prior myocardial necrosis. Although a small area of basal septal ischemia cannot be definitely excluded. The imaging characteristics of this perfusion abnormality suggest that it may be artifactual in origin. A significant degree of ischemia, however, is not seen. [facility]# [id number] MIGDALIA/MARIBELL
[2019-01-11] MEDS: NITRO-BID 2% TP SCH ×5 (03:19→21:57)
--- NOTE | 2019-01-11 08:55 | Progress Note ---
Assessment and Plan The patient's cardiac status is stable. We will proceed with cardiac catheterization on Sunday. Continue current management. The patient was evaluated by Dr. Stuart, who developed assessment and plan. - Patient Problems (1) Chest pain Current Visit: Yes Status: Acute Qualifiers: Chest pain type: unspecified Qualified Code(s): R07.9 - Chest pain, unspecified (2) Hypertension Current Visit: Yes Status: Chronic (3) Hypothyroidism Current Visit: Yes Status: Chronic Subjective Date of service: 01/11/19 Interval history: The patient is lying in bed in [facility]. She has no complaints. She agrees to proceed with cardiac catheterization on Sunday. Objective Last Vital Signs Temp 98.0 F 01/11/19 07:45 Pulse 50 L 01/11/19 07:45 Resp 16 01/11/19 07:45 BP 125/56 01/11/19 07:45 Pulse Ox 98 01/11/19 07:45 - Physical Examination General: Appears Well HEENT: Positive: PERRL Neck: Positive: neck supple. Negative: JVD/HJR, Bruit Cardiac: Positive: Reg Rate and Rhythm Lungs: Positive: Normal Exam Neuro: Positive: Grossly Intact Abdomen: Positive: Soft. Negative: Tender Skin: Positive: Clear Musculoskeletal: Normal Range of Motion Extremities: Present: normal. Absent: edema - Imaging and Cardiology EKG: image reviewed (Sinus rhythm, 65 bpm) Stress echo: report reviewed (01/10/19: normal lv systolic function with an area of possible basal inferoseptal ischemia)
--- NOTE | 2019-01-11 09:34 | Progress Note ---
Assessment and Plan Assessment and plan: 68-year-old -Citizen Of [place] female who is a former smoker with history of degenerative disc disease, hypertension, hypothyroidism, GERD, arthritis who presents to [facility] ED with complaints of chest pain accompanied by diaphoresis and nausea. Acute Chest Pain To R/O ACS -Initiate chest pain protocol -Continuous telemetry monitoring -Continue supportive care -Pain mgmt -Abnormal stress test Consult cardiology and she was seen For cardiac cath on Sunday HTN -Monitor BP -Resume home antihypertensive meds to optimize BP -Hold BB for now -IV hydralazine when necessary Hypothroidism -Continue Synthroid GERD -Continue PPI Arthritis -Supportive care DVT PPX -On Lovenox History Interval history: Presented with chest pain No mre chest pain Hospitalist Physical - Physical exam Narrative exam: Gen: Not in acute distress, lying in bed,morbidly obese HEENT: Normocephalic, atraumatic Neck: supple, no JVD Heart: S1 and S2 reg, no murmurs, rubs or gallop Lungs: Clear, no crackles, no rhonchi Abd: soft, non tender, non distended, normal BS, Ext: No edema, no clubbing, no cyanosis Neuro: awake,alert,oriented, moves all ext - Constitutional Vitals: Temp Pulse Resp BP Pulse Ox 98.0 F 50 L 16 125/56 98 01/11/19 07:45 01/11/19 07:45 01/11/19 07:45 01/11/19 07:45 01/11/19 07:45 General appearance: Present: no acute distress Results - Labs CBC & Chem 7: 01/10/19 04:02 01/10/19 04:02 Labs: Laboratory Last Values WBC 5.2 K/mm3 (4.5-11.0) 01/10/19 04:02 RBC 4.30 M/mm3 (3.65-5.03) 01/10/19 04:02 Hgb 13.3 gm/dl (10.1-14.3) 01/10/19 04:02 Hct 40.0 % (30.3-42.9) 01/10/19 04:02 MCV 93 fl (79-97) 01/10/19 04:02 MCH 31 pg (28-32) 01/10/19 04:02 MCHC 33 % (30-34) 01/10/19 04:02 RDW 14.7 % (13.2-15.2) 01/10/19 04:02 Plt Count 177 K/mm3 (140-440) 01/10/19 04:02 Lymph % (Auto) 29.3 % (13.4-35.0) 01/10/19 04:02 [place] % (Auto) 11.1 % (0.0-7.3) H 01/10/19 04:02 Eos % (Auto) 6.5 % (0.0-4.3) H 01/10/19 04:02 Baso % (Auto) 0.4 % (0.0-1.8) 01/10/19 04:02 Lymph # 1.5 K/mm3 (1.2-5.4) 01/10/19 04:02 [place] # 0.6 K/mm3 (0.0-0.8) 01/10/19 04:02 Eos # 0.3 K/mm3 (0.0-0.4) 01/10/19 04:02 Baso # 0.0 K/mm3 (0.0-0.1) 01/10/19 04:02 Seg Neutrophils % 52.7 % (40.0-70.0) 01/10/19 04:02 Seg Neutrophils # 2.8 K/mm3 (1.8-7.7) 01/10/19 04:02 PT 12.5 Sec. (12.2-14.9) 01/09/19 12:37 INR 0.96 (0.87-1.13) 01/09/19 12:37 APTT 28.3 Sec. (24.2-36.6) 01/09/19 12:37 Sodium 145 mmol/L (137-145) 01/10/19 04:02 Potassium 4.1 mmol/L (3.6-5.0) 01/10/19 04:02 Chloride 106.6 mmol/L (98-107) 01/10/19 04:02 Carbon Dioxide 30 mmol/L (22-30) 01/10/19 04:02 13 mmol/L 01/10/19 04:02 BUN 23 mg/dL (7-17) H 01/10/19 04:02 0.9 mg/dL (0.7-1.2) 01/10/19 04:02 Estimated GFR > 60 ml/min 01/10/19 04:02 26 % 01/10/19 04:02 Glucose 100 mg/dL (65-100) 01/10/19 04:02 Calcium 8.7 mg/dL (8.4-10.2) 01/10/19 04:02 < 0.010 ng/mL (0.00-0.029) 01/09/19 21:24 Triglycerides 104 mg/dL (2-149) 01/10/19 04:02 Cholesterol 165 mg/dL (50-199) 01/10/19 04:02 91 mg/dL (50-130) 01/10/19 04:02 58 mg/dL (40-59) 01/10/19 04:02 2.84 % 01/10/19 04:02 TSH 3.060 mlU/mL (0.270-4.200) 01/09/19 21:24 Active Medications - Current Medications Current Medications: Generic Name Dose Route Start Last Admin Trade Name Freq PRN Reason Stop Dose Admin Albuterol 2.5 mg 01/09/19 19:53 Proventil IH Q3HRT PRN Shortness Of Breath Aspirin 81 mg 01/10/19 10:00 01/10/19 14:00 Baby Aspirin PO 81 mg QDAY [facility] Administration Atorvastatin Calcium 40 mg 01/09/19 22:00 01/10/19 21:44 Lipitor PO 40 mg QHS [facility] Administration Duloxetine HCl 60 mg 01/10/19 10:00 01/10/19 14:00 Cymbalta PO 60 mg QDAY [facility] Administration Enoxaparin Sodium 40 mg 01/10/19 10:00 01/10/19 14:02 Lovenox SUB-Q 40 mg QDAY [facility] Administration Hydralazine HCl 10 mg 01/09/19 20:26 Apresoline IV Q4HR PRN Blood Pressure Hydrochlorothiazide 12.5 mg 01/10/19 10:00 01/10/19 15:19 Hctz PO Not Given QDAY [facility]A Sodium Chloride 1,000 mls @ 100 mls/hr 01/09/19 20:00 01/09/19 20:11 Nacl 0.9% 1000 Ml IV 100 mls/hr DIRECT [facility] Administration Levothyroxine Sodium 125 mcg 01/10/19 10:00 01/10/19 14:02 Synthroid PO 125 mcg QAM [facility] Administration Meloxicam 7.5 mg 01/10/19 10:00 01/10/19 14:03 Mobic PO 7.5 mg QDAY [facility] Administration Morphine Sulfate 2 mg 01/09/19 19:53 01/10/19 20:36 Morphine IV 2 mg Q4H PRN Administration Pain, Moderate (4-6) Nitroglycerin 0.4 mg 01/09/19 19:48 Nitrostat SL Q5M PRN Chest Pain Nitroglycerin 0.5 inch 01/10/19 15:00 01/11/19 03:19 Nitro-Bid 2% TP 0.5 inch Q6H [facility] Administration Protocol Ondansetron HCl 4 mg 01/09/19 19:53 Zofran IV Q6H PRN Nausea And Vomiting Oxycodone/Acetaminophen 1 tab 01/09/19 19:53 01/10/19 14:01 Percocet 5/325 PO 1 tab Q6H PRN Administration Pain, Moderate (4-6) Pantoprazole Sodium 40 mg 01/10/19 10:00 01/10/19 14:02 Protonix PO 40 mg QDAY [facility] Administration Sodium Chloride 10 ml 01/09/19 19:48 Sodium Chloride Flush Syringe 10 Ml IV PRN PRN LINE FLUSH Sodium Chloride 10 ml 01/09/19 22:00 01/10/19 22:48 Sodium Chloride Flush Syringe 10 Ml IV Not Given BID MERA Zolpidem Tartrate 5 mg 01/09/19 22:55 01/10/19 21:44 Ambien PO 5 mg QHS PRN Administration Sleep
[2019-01-11] MEDS: BABY ASPIRIN PO SCH (10:17)
[2019-01-11] MEDS: CYMBALTA PO SCH (10:17)
[2019-01-11] MEDS: SYNTHROID PO SCH (10:18)
[2019-01-11] MEDS: PROTONIX PO SCH (10:18)
[2019-01-11] MEDS: LOVENOX SUB-Q SCH (10:18)
[2019-01-11] MEDS: HCTZ PO SCH (10:20)
[2019-01-11] MEDS: MOBIC PO SCH (10:26)
[2019-01-11] MEDS: SODIUM CHLORIDE FLUSH SYRINGE 10 ML IV SCH ×2 (10:26→22:03)
[2019-01-11] MEDS: PERCOCET 5/325 PO PRN ×2 (10:30→21:56)
[2019-01-11] MEDS: AMBIEN PO PRN (21:57)
[2019-01-12] MEDS: NITRO-BID 2% TP SCH ×4 (03:13→21:55)
[2019-01-12] MEDS: MORPHINE IV PRN (05:13)
[2019-01-12] MEDS: HCTZ PO SCH (06:13)
[2019-01-12] MEDS: LOVENOX SUB-Q SCH (09:23)
[2019-01-12] MEDS: CYMBALTA PO SCH (09:23)
[2019-01-12] MEDS: SYNTHROID PO SCH (09:24)
[2019-01-12] MEDS: PROTONIX PO SCH (09:24)
[2019-01-12] MEDS: MOBIC PO SCH (09:25)
[2019-01-12] MEDS: SODIUM CHLORIDE FLUSH SYRINGE 10 ML IV SCH ×2 (09:26→21:59)
[2019-01-12] MEDS: BABY ASPIRIN PO SCH (09:26)
[2019-01-12] MEDS: PERCOCET 5/325 PO PRN ×2 (09:49→16:30)
--- NOTE | 2019-01-12 10:12 | Progress Note ---
Assessment and Plan Assessment and plan: 68-year-old -[place] female who is a former smoker with history of degenerative disc disease, hypertension, hypothyroidism, GERD, arthritis who presents to [facility] ED with complaints of chest pain accompanied by diaphoresis and nausea. Acute Chest Pain To R/O ACS -Continuous telemetry monitoring -Continue supportive care -Pain mgmt -Abnormal stress test Consult cardiology and she was seen For cardiac cath on Sunday HTN -Monitor BP -Resume home antihypertensive meds to optimize BP -Hold Coreg because of bradycardia -IV hydralazine when necessary Hypothroidism -Continue Synthroid GERD -Continue PPI Arthritis -Supportive care DVT PPX -On Lovenox History Interval history: Presented with chest pain No more chest pain patient states she was on Gabapentin and Ranitidine at home. Hospitalist Physical - Physical exam Narrative exam: Gen: Not in acute distress, lying in bed,morbidly obese HEENT: Normocephalic, atraumatic Neck: supple, no JVD Heart: S1 and S2 reg, no murmurs, rubs or gallop Lungs: Clear, no crackles, no rhonchi Abd: soft, non tender, non distended, normal BS, Ext: No edema, no clubbing, no cyanosis Neuro: awake,alert,oriented, moves all ext - Constitutional Vitals: Temp Pulse Resp BP Pulse Ox 98.9 F 67 16 114/76 95 01/12/19 08:28 01/12/19 09:25 01/12/19 08:28 01/12/19 09:25 01/12/19 08:28 General appearance: Present: no acute distress Results - Labs CBC & Chem 7: 01/10/19 04:02 01/10/19 04:02 Labs: Laboratory Last Values WBC 5.2 K/mm3 (4.5-11.0) 01/10/19 04:02 RBC 4.30 M/mm3 (3.65-5.03) 01/10/19 04:02 Hgb 13.3 gm/dl (10.1-14.3) 01/10/19 04:02 Hct 40.0 % (30.3-42.9) 01/10/19 04:02 MCV 93 fl (79-97) 01/10/19 04:02 MCH 31 pg (28-32) 01/10/19 04:02 MCHC 33 % (30-34) 01/10/19 04:02 RDW 14.7 % (13.2-15.2) 01/10/19 04:02 Plt Count 177 K/mm3 (140-440) 01/10/19 04:02 Lymph % (Auto) 29.3 % (13.4-35.0) 01/10/19 04:02 [place] % (Auto) 11.1 % (0.0-7.3) H 01/10/19 04:02 Eos % (Auto) 6.5 % (0.0-4.3) H 01/10/19 04:02 Baso % (Auto) 0.4 % (0.0-1.8) 01/10/19 04:02 Lymph # 1.5 K/mm3 (1.2-5.4) 01/10/19 04:02 [place] # 0.6 K/mm3 (0.0-0.8) 01/10/19 04:02 Eos # 0.3 K/mm3 (0.0-0.4) 01/10/19 04:02 Baso # 0.0 K/mm3 (0.0-0.1) 01/10/19 04:02 Seg Neutrophils % 52.7 % (40.0-70.0) 01/10/19 04:02 Seg Neutrophils # 2.8 K/mm3 (1.8-7.7) 01/10/19 04:02 PT 12.5 Sec. (12.2-14.9) 01/09/19 12:37 INR 0.96 (0.87-1.13) 01/09/19 12:37 APTT 28.3 Sec. (24.2-36.6) 01/09/19 12:37 Sodium 145 mmol/L (137-145) 01/10/19 04:02 Potassium 4.1 mmol/L (3.6-5.0) 01/10/19 04:02 Chloride 106.6 mmol/L (98-107) 01/10/19 04:02 Carbon Dioxide 30 mmol/L (22-30) 01/10/19 04:02 13 mmol/L 01/10/19 04:02 BUN 23 mg/dL (7-17) H 01/10/19 04:02 0.9 mg/dL (0.7-1.2) 01/10/19 04:02 Estimated GFR > 60 ml/min 01/10/19 04:02 26 % 01/10/19 04:02 Glucose 100 mg/dL (65-100) 01/10/19 04:02 Calcium 8.7 mg/dL (8.4-10.2) 01/10/19 04:02 < 0.010 ng/mL (0.00-0.029) 01/09/19 21:24 Triglycerides 104 mg/dL (2-149) 01/10/19 04:02 Cholesterol 165 mg/dL (50-199) 01/10/19 04:02 91 mg/dL (50-130) 01/10/19 04:02 58 mg/dL (40-59) 01/10/19 04:02 2.84 % 01/10/19 04:02 TSH 3.060 mlU/mL (0.270-4.200) 01/09/19 21:24 Active Medications - Current Medications Current Medications: Generic Name Dose Route Start Last Admin Trade Name Freq PRN Reason Stop Dose Admin Albuterol 2.5 mg 01/09/19 19:53 Proventil IH Q3HRT PRN Shortness Of Breath Aspirin 81 mg 01/10/19 10:00 01/12/19 09:26 Baby Aspirin PO 81 mg QDAY MERA Administration Atorvastatin Calcium 40 mg 01/09/19 22:00 01/11/19 21:57 Lipitor PO 40 mg QHS MERA Administration Duloxetine HCl 60 mg 01/10/19 10:00 01/12/19 09:23 Cymbalta PO 60 mg QDAY MERA Administration Enoxaparin Sodium 40 mg 01/10/19 10:00 01/12/19 09:23 Lovenox SUB-Q 40 mg QDAY MERA Administration Hydralazine HCl 10 mg 01/09/19 20:26 Apresoline IV Q4HR PRN Blood Pressure Levothyroxine Sodium 125 mcg 01/10/19 10:00 01/12/19 09:24 Synthroid PO 125 mcg QAM MERA Administration Meloxicam 7.5 mg 01/10/19 10:00 01/12/19 09:25 Mobic PO 7.5 mg QDAY MERA Administration Morphine Sulfate 2 mg 01/09/19 19:53 01/12/19 05:13 Morphine IV 2 mg Q4H PRN Administration Pain, Moderate (4-6) Nitroglycerin 0.4 mg 01/09/19 19:48 Nitrostat SL Q5M PRN Chest Pain Nitroglycerin 0.5 inch 01/10/19 15:00 01/12/19 09:25 Nitro-Bid 2% TP 0.5 inch Q6H MERA Administration Protocol Ondansetron HCl 4 mg 01/09/19 19:53 Zofran IV Q6H PRN Nausea And Vomiting Oxycodone/Acetaminophen 1 tab 01/09/19 19:53 01/12/19 09:49 Percocet 5/325 PO 1 tab Q6H PRN Administration Pain, Moderate (4-6) Pantoprazole Sodium 40 mg 01/10/19 10:00 01/12/19 09:24 Protonix PO 40 mg QDAY MERA Administration Sodium Chloride 10 ml 01/09/19 19:48 Sodium Chloride Flush Syringe 10 Ml IV PRN PRN LINE FLUSH Sodium Chloride 10 ml 01/09/19 22:00 01/12/19 09:26 Sodium Chloride Flush Syringe 10 Ml IV 10 ml BID MERA Administration Zolpidem Tartrate 5 mg 01/09/19 22:55 01/11/19 21:57 Ambien PO 5 mg QHS PRN Administration Sleep
[2019-01-12] MEDS ORDERED: NON-FORMULARY (Ranitidine Hcl [Zantac] 150 MG) PO SCH (10:15)
[2019-01-12] MEDS ORDERED: NORCO 7.5/325 PO SCH (11:00)
[2019-01-12] MEDS ORDERED: COREG PO SCH (11:00)
--- NOTE | 2019-01-12 13:20 | Progress Note ---
Assessment and Plan The patient's cardiac status is stable. We will proceed with cardiac catheterization tomorrow. Continue current management. The patient was evaluated by Dr. Stuart, who performed the assessment and developed the plan of care. - Patient Problems (1) Chest pain Current Visit: Yes Status: Acute Qualifiers: Chest pain type: unspecified Qualified Code(s): R07.9 - Chest pain, unspecified (2) Abnormal stress test Current Visit: Yes Status: Acute (3) Hypertension Current Visit: Yes Status: Chronic (4) Hypothyroidism Current Visit: Yes Status: Chronic Subjective Date of service: 01/12/19 Interval history: The patient is lying in bed in [facility]. She has no complaints. She agrees to proceed with cardiac catheterization tomorrow. Objective Last Vital Signs Temp 97.9 F 01/12/19 12:00 Pulse 56 L 01/12/19 12:00 Resp 19 01/12/19 12:00 BP 126/67 01/12/19 12:00 Pulse Ox 99 01/12/19 10:00 - Physical Examination General: Appears Well HEENT: Positive: PERRL Neck: Positive: neck supple. Negative: JVD/HJR, Bruit Cardiac: Positive: Reg Rate and Rhythm Lungs: Positive: Normal Exam Neuro: Positive: Grossly Intact Abdomen: Positive: Soft. Negative: Tender Skin: Positive: Clear Musculoskeletal: Normal Range of Motion Extremities: Present: normal. Absent: edema - Imaging and Cardiology EKG: image reviewed (Sinus rhythm, 65 bpm) Stress echo: report reviewed (01/10/19: normal lv systolic function with an area of possible basal inferoseptal ischemia) - Telemetry EKG Rhythm: Sinus Rhythm
[2019-01-12] MEDS: NEURONTIN PO SCH ×2 (14:13→21:58)
[2019-01-12] MEDS: AMBIEN PO PRN (22:04)
[2019-01-13] MEDS: NITRO-BID 2% TP SCH ×3 (03:15→15:04)
[2019-01-13 04:46] LABS: Hematocrit 37.9 % (30.3-42.9); Hemoglobin 12.8 gm/dl (10.1-14.3); Mean Corpuscular HGB Conc 34 % (30-34); Mean Corpuscular Volume 92 fl (79-97); Platelet Count 164 K/mm3 (140-440); Red Blood Count 4.14 M/mm3 (3.65-5.03); Red Cell Distribution Width 14.5 % (13.2-15.2)
[2019-01-13 05:13] LABS: BUN/Creatinine Ratio 25; Blood Urea Nitrogen 20 mg/dL (7-17); Calcium 8.9 mg/dL (8.4-10.2); Hemolysis Index 12
[2019-01-13] MEDS: NEURONTIN PO SCH ×2 (05:42→14:01)
[2019-01-13 05:57] LABS: Partial Thromboplastin Time 29.5 Sec. (24.2-36.6)
[2019-01-13] MEDS ORDERED: ECOTRIN PO NR (07:22)
[2019-01-13] MEDS ORDERED: NACL 0.9% 500 ML 500 ML IV SCH (08:00)
[2019-01-13] MEDS ORDERED: HEPARIN/NS 5000 UNIT/500ML(CATH LAB) 1,000 ML IR ONE (08:06)
[2019-01-13] MEDS ORDERED: HEPARIN 10,000 UNITS/10 ML ONE (08:06)
[2019-01-13] MEDS ORDERED: CALAN ONE (08:07)
[2019-01-13] MEDS ORDERED: SUBLIMAZE ONE (08:07)
[2019-01-13] MEDS ORDERED: XYLOCAINE 2% INFILTRATI ONE (08:07)
[2019-01-13] MEDS ORDERED: NITROGLYCERIN SYRINGE 3 ML ONE (08:07)
[2019-01-13] MEDS: VERSED ONE ×2 (08:16→08:20)
--- NOTE | 2019-01-13 09:22 | Cardiac Catherization Report ---
REFERRING PHYSICIAN: Hospitalist service and Dr. Cory Stuart. INDICATION FOR PROCEDURE: The patient is a pleasant 68-year-old -Mong[place]ian female with recurrent chest pain. She had a stress test here, which was equivocal. She is referred for left heart catheterization. Risks, benefits, and potential alternatives were explained at length prior to obtaining informed consent. PROCEDURE IN DETAIL: The patient was brought to the catheterization lab in postoperative state, prepped and draped in sterile fashion. Tyler's test in right hand was normal. A 2 mL of 2% lidocaine used to anesthetize the right wrist. A standard 6-Pashto hydrophilic sheath used to cannulate the right radial artery via modified Seldinger technique. All exchanges performed to exchange a J-tip guidewire. JL3.5 catheter used to engage the left main. No dampening or ventricularization. Cineangiography performed in multiple projections. JR4 catheter used to cross the aortic valve under fluoroscopic guidance. Left ventriculography performed in 30 [place]ANTRELL and 30 CHINESE projections via hand injections, catheter flushed. Manual pullback performed with continuous pressure monitoring. Catheter was used to engage the right coronary. No dampening or ventricularization. Cineangiography performed in all projections. Due to recurrent chest pain, unremarkable coronaries root aortogram was performed in the CHINESE projection with power injector and pigtail catheter. Next, catheter removed from the body of wire, sheath removed. Manual pressure used to achieve hemostasis. I directly supervised the administration of moderate sedation from 8:10 a.m. to 8:34 a.m. with fentanyl and Versed. There were no immediate complications. FINDINGS: The patient remained in normal sinus rhythm throughout the procedure. Aortic pressure is 140/70, LV pressure is 140, LVEDP of 15 mmHg. Left ventriculography revealed normal systolic performance with estimated ejection fraction of 55-60%. No evidence of aortic stenosis. CORONARY ANATOMY: Right dominant system: Right coronary is a moderate sized vessel, courses AV groove, distally bifurcates in the posterior descending and posterolateral branches. No discrete stenosis identified. Left main without significant disease, bifurcates left anterior descending and left circumflex. Left circumflex, moderate sized vessel, courses AV groove. No significant disease. LAD is a moderate sized vessel, courses anterior intergroove, wraps around the apex, 25% proximal LAD stenosis, AVA 3 flow throughout. No obstructive disease noted in the LAD or diagonal system. Root aortogram reveals normal contour and normal gauge. Normal great vessel anatomy, no dissection, penetrating aortic ulcer, or aortic insufficiency. 1. Mild nonobstructive coronary artery disease with 25% proximal LAD stenosis in this right dominant system. No obstructive disease identified. 2. Normal left ventricular systolic performance, estimated ejection fraction of 55-60%. 3. No evidence of aortic stenosis. 4. Normal LVEDP. 5. Normal root aortogram without evidence of dissection, penetrating aortic ulcer, or aortic insufficiency. CONCLUSIONS: Recommend optimum medical therapy. Continue current medications. Follow up with us in the office. Follow up with in the office. Stable cardiac status. Standard radial care. Results of procedure explained to the patient and family. All questions and concerns were addressed. JOB# [id number] TOREY/MARIBELL
--- NOTE | 2019-01-13 09:37 | Progress Note ---
Assessment and Plan [facility] this am via [facility]: 1. Mild nonobstructive CAD 2. Normal LV fxn (60-65%) 3. Nl lvedp 4. No as 5. Nl root aortogram w/o evidence of ulcer/dissection/AI clinically stable cp-free aggressive primary and secondary prevention measures Stable cv status - Patient Problems (1) Abnormal stress test Current Visit: Yes Status: Acute (2) Chest pain Current Visit: Yes Status: Acute Qualifiers: Chest pain type: unspecified Qualified Code(s): R07.9 - Chest pain, unspecified (3) Hypertension Current Visit: Yes Status: Chronic (4) Hypothyroidism Current Visit: Yes Status: Chronic Subjective Date of service: 01/13/19 Interval history: no sxs overnight Objective Vital Signs Temp Pulse Pulse Pulse Pulse Resp BP 01/13/19 04:33 98.4 F 71 18 113/70 01/13/19 04:00 70 01/12/19 23:56 98.3 F 70 18 128/75 01/12/19 22:00 55 L 55 L 55 L 19 01/12/19 21:55 55 L 146/77 01/12/19 20:00 64 01/12/19 19:17 98.0 F 64 18 146/77 01/12/19 16:17 97.9 F 54 L 19 01/12/19 15:58 53 L 138/77 01/12/19 14:12 56 L 126/67 01/12/19 12:00 97.9 F 61 19 01/12/19 11:44 56 L 126/67 01/12/19 10:00 56 L 61 61 61 19 BP Pulse Ox 01/13/19 04:33 98 01/13/19 04:00 01/12/19 23:56 98 01/12/19 22:00 99 01/12/19 21:55 01/12/19 20:00 01/12/19 19:17 97 01/12/19 16:17 138/77 100 01/12/19 15:58 97 01/12/19 14:12 01/12/19 12:00 126/67 01/12/19 11:44 96 01/12/19 10:00 99 - Physical Examination General: Appears Well HEENT: Positive: PERRL Neck: Positive: neck supple. Negative: JVD/HJR, Bruit Neuro: Positive: Grossly Intact Abdomen: Positive: Soft. Negative: Tender Skin: Positive: Clear Musculoskeletal: Normal Range of Motion Extremities: Present: normal. Absent: edema - Labs and Meds Coagulation 01/13/19 Range/Units 05:34 PT 12.9 (12.2-14.9) Sec. INR 1.00 (0.87-1.13) APTT 29.5 (24.2-36.6) Sec. CBC 01/13/19 Range/Units 04:19 WBC 4.5 (4.5-11.0) K/mm3 RBC 4.14 (3.65-5.03) M/mm3 Hgb 12.8 (10.1-14.3) gm/dl Hct 37.9 (30.3-42.9) % Plt Count 164 (140-440) K/mm3 Comprehensive Metabolic Panel 01/13/19 Range/Units 04:19 Sodium 142 (137-145) mmol/L Potassium 4.2 (3.6-5.0) mmol/L Chloride 105.8 (98-107) mmol/L Carbon Dioxide 25 (22-30) mmol/L BUN 20 H (7-17) mg/dL Creatinine 0.8 (0.7-1.2) mg/dL Glucose 86 (65-100) mg/dL Calcium 8.9 (8.4-10.2) mg/dL - Imaging and Cardiology EKG: image reviewed (Sinus rhythm, 65 bpm) Stress echo: report reviewed (01/10/19: normal lv systolic function with an area of possible basal inferoseptal ischemia)
[2019-01-13] MEDS: MOBIC PO SCH (09:39)
[2019-01-13] MEDS: SYNTHROID PO SCH (09:39)
[2019-01-13] MEDS: PROTONIX PO SCH (09:39)
[2019-01-13] MEDS: CYMBALTA PO SCH (09:39)
[2019-01-13] MEDS: LOVENOX SUB-Q SCH (09:40)
[2019-01-13] MEDS: BABY ASPIRIN PO SCH (09:40)
[2019-01-13] MEDS: SODIUM CHLORIDE FLUSH SYRINGE 10 ML IV SCH (10:07)
[2019-01-13] MEDS: MORPHINE IV PRN (14:04)
--- NOTE | 2019-01-13 15:23 | Discharge Summary ---
Providers - Providers Date of Admission: 01/10/19 15:30 Date of discharge: 01/13/19 Attending physician: HUSAM BROWN 01/10/19 14:33 Consult to Physician [CONS] Routine Comment: Consulting Provider: MIGEL THOMAS Physician Instructions: Reason For Exam: Still Chest pressure, abnormal stress test Primary care physician: SIMBA HICKS Hospitalization Condition: Fair Disposition: DC-01 TO HOME OR SELFCARE - Discharge Diagnoses (1) GERD (gastroesophageal reflux disease) Status: Acute Core Measure Documentation - Palliative Care Palliative Care/ Comfort Measures: Not Applicable - Core Measures Any of the following diagnoses?: none Exam - Constitutional Vitals: Temp Pulse Resp BP Pulse Ox 97.9 F 63 19 151/88 100 01/13/19 10:00 01/13/19 13:26 01/13/19 11:30 01/13/19 11:30 01/13/19 11:30 Plan Activity: advance as tolerated Diet: low fat, low cholesterol, low salt Plan of Treatment: 1.Follow up with PCP in 1 week. 2.Follow up with Cardiology in 1 week Assessment: 1.Chest pain, non cardiac due to GERD 2. CAD, non obstructive, mild Follow up with: PRIMARY CARE, [Referring] - 3-5 Days Prescriptions: Aspirin EC 325 mg PO QDAY #30 tablet. Lisinopril/Hydrochlorothiazide [Zestoretic 20-12.5 mg] 1 tab PO QDAY #30 tab
[2019-01-13 15:56] VITALS: BP 122/80
== END 2019-01-13 16:59 | disposition home or self-care (01) | DRG 392 ==
LOC: ED 11:58 → 4A 18:39 → OBSVTOIN 01-10 15:30
PROVIDERS: ADMIT Internal Medicine; ATTEND Internal Medicine
PROC: 4A023N7 Measurement of Cardiac Sampling and Pressure, Left Heart, Percutaneous Approach (ICD-10-PCS; principal; 2019-01-13)
PROC: B2111ZZ Fluoroscopy of Multiple Coronary Arteries using Low Osmolar Contrast (ICD-10-PCS; 2019-01-13)
PROC: B2151ZZ Fluoroscopy of Left Heart using Low Osmolar Contrast (ICD-10-PCS; 2019-01-13)
PROC: B3101ZZ Fluoroscopy of Thoracic Aorta using Low Osmolar Contrast (ICD-10-PCS; 2019-01-13)
DX: K21.9 Gastro-esophageal reflux disease without esophagitis (principal); I25.10 Atherosclerotic heart disease of native coronary artery without angina pectoris; I10 Essential (primary) hypertension; E03.9 Hypothyroidism, unspecified; M19.90 Unspecified osteoarthritis, unspecified site; Z87.891 Personal history of nicotine dependence; Z88.5 Allergy status to narcotic agent; Z79.899 Other long term (current) drug therapy
CPT/HCPCS: 36415; 70450; 71046; 78452; 80048; 80061; 82962; 84443; 84484; 85025; 85027; 85610; 85730; 93005; 93010; 93017; 93306; 93458; 93567; G0378; A9270-GY; A9502; C1894; J1644; J1650; J2250; J2270; J2405; J2785; J3010; J7030; J7040; Q9967